=== PATIENT | male | born 1945 | race Caucasian/White ===

== ENCOUNTER 2020-06-15 16:36 | Inpatient (IN) | payer OTHER ==
[~2020-06-15] VITALS: Ht 175.3 cm; Wt 95.3 kg
[~2020-06-15 16:36] MED LIST: ACYCLOVIR400 MG PO; PREDNISONE20 MG PO
[2020-06-15 17:41] LABS: HEMOGLOBIN 16.1 gm/dl (14.0-17.5); RED BLOOD COUNT 5.26 M/UL (4.20-5.50); WHITE BLOOD COUNT 8.6 K/UL (4.5-11.0)
[2020-06-15] MEDS ORDERED: NORVASC5 MG PO (18:57)
[2020-06-15] MEDS ORDERED: ASPIRIN81 MG PO (18:57)
[2020-06-16 08:24] LABS: HEMOGLOBIN 15.5 gm/dl (14.0-17.5); RED BLOOD COUNT 5.1 M/UL (4.20-5.50); WHITE BLOOD COUNT 8.4 K/UL (4.5-11.0)
[2020-06-17 07:04] LABS: HEMOGLOBIN 14.7 gm/dl (14.0-17.5); RED BLOOD COUNT 4.81 M/UL (4.20-5.50); WHITE BLOOD COUNT 8.8 K/UL (4.5-11.0)
[2020-06-17] MEDS ORDERED: MEDROL4 MG PO (15:32)
[2020-06-18 05:22] LABS: HEMOGLOBIN 14.7 gm/dl (14.0-17.5); RED BLOOD COUNT 4.85 M/UL (4.20-5.50); WHITE BLOOD COUNT 7.1 K/UL (4.5-11.0)
[2020-06-18 05:46] LABS: BUN/CREATININE RATIO 23 (0-10)
[2020-06-19 06:03] LABS: BUN/CREATININE RATIO 25 (0-10)
[2020-06-20 05:44] LABS: BUN/CREATININE RATIO 26 (0-10)
--- NOTE | 2020-06-20 15:23 | NUR ---
PATIENT SATS 79% ON ROOM AIR ON EXERTION
[2020-06-21 14:52] LABS: BORDETELLA PARAPERTUSSIS Not Detected (Not Detectd); BORDETELLA PERTUSSIS Not Detected (Not Detectd); CHLAMYDIA PNEUMONIAE Not Detected (Not Detectd); CORONAVIRUS HKU1 Not Detected (Not Detectd); CORONAVIRUS NL63 Not Detected (Not Detectd); CORONAVIRUS OC43 Not Detected (Not Detectd); CORONOAVIRUS 229E Not Detected (Not Detectd); HUMAN METAPNEUMOVIRUS Not Detected (Not Detectd); HUMAN RHINOVIRUS/ENTEROVIRUS Not Detected (Not Detectd); INFLUENZA A Not Detected (Not Detectd); INFLUENZA B Not Detected (Not Detectd); MYCOPLASMA PNEUMONIAE Not Detected (Not Detectd); PARAINFLUENZA VIRUS 1 Not Detected (Not Detectd); PARAINFLUENZA VIRUS 2 Not Detected (Not Detectd); PARAINFLUENZA VIRUS 3 Not Detected (Not Detectd); PARAINFLUENZA VIRUS 4 Not Detected (Not Detectd); RESPIRATORY SYNCYTIAL VIRUS Not Detected (Not Detectd)
[2020-06-21 16:21] LABS: SARS-CoV-2 DETECTED (Not Detectd)
[2020-06-22 06:24] LABS: HEMOGLOBIN 15.8 gm/dl (14.0-17.5); RED BLOOD COUNT 5.28 M/UL (4.20-5.50); WHITE BLOOD COUNT 10.5 K/UL (4.5-11.0)
[2020-06-22 06:50] LABS: BUN/CREATININE RATIO 23 (0-10)
[2020-06-22] MEDS ORDERED: DECADRON6 MG PO (11:57)
[2020-06-22] MEDS ORDERED: HYDRALAZINE HCL25 MG PO ×2 (12:03→13:22)
[2020-06-22] MEDS ORDERED: NORVASC10 MG PO (12:03)
[2020-06-22] MEDS ORDERED: COMBIVENT RESPIM4 GM INH (12:03)
== END 2020-06-22 14:32 | disposition home or self-care (01) | DRG 177 ==
LOC: ER1 16:36 → CDU 18:33 → MED SURG 4 18:33
PROVIDERS: Internal Medicine; Preventive Medicine Occupational Medicine; ADMIT Internal Medicine
PROC: 8E0ZXY6 Isolation (ICD-10-PCS; principal; 2020-06-15)
PROC: XW033E5 Introduction of Remdesivir Anti-infective into Peripheral Vein, Percutaneous Approach, New Technology Group 5 (ICD-10-PCS; 2020-06-15)
PROC: XW13325 Transfusion of Convalescent Plasma (Nonautologous) into Peripheral Vein, Percutaneous Approach, New Technology Group 5 (ICD-10-PCS; 2020-06-17)
DX: U07.1 COVID-19 (principal); J12.82 Pneumonia due to coronavirus disease 2019; J96.01 Acute respiratory failure with hypoxia; N17.9 Acute kidney failure, unspecified; G47.33 Obstructive sleep apnea (adult) (pediatric); R73.9 Hyperglycemia, unspecified; I10 Essential (primary) hypertension; Z79.82 Long term (current) use of aspirin; Z79.899 Other long term (current) drug therapy
CPT/HCPCS: 36415; 71045; 80053; 80076; 83605; 85025; 85027; 85610; 85652; 86140; 86710; 86900; 86901; 86927; 87040; 87633; 90471; 94640; 94664; 94760; 96365; 96366; 96368; 96372; 96375; 97116; 97116-GP-CQ; 97162; 99285; J0360; J0456; J0696; J1100; J1650; J2405; J7030

== ENCOUNTER 2020-07-12 14:54 | Inpatient (IN) | payer OTHER ==
[~2020-07-12] VITALS: Ht 177.8 cm; Wt 90.4 kg
[~2020-07-12 14:54] MED LIST changes: +ASPIRIN81 MG PO; +COMBIVENT RESPIM4 GM INH; +DECADRON6 MG PO; +HYDRALAZINE HCL25 MG PO; +MEDROL4 MG PO; +NORVASC10 MG PO; +NORVASC5 MG PO
[2020-07-12 16:09] LABS: RED BLOOD COUNT 4.92 M/UL (4.20-5.50); WHITE BLOOD COUNT 11.7 K/UL (4.5-11.0)
[2020-07-12 16:37] LABS: BUN/CREATININE RATIO 16 (0-10)
[2020-07-12] MEDS ORDERED: ALBUTEROL2.5 MG/3 M INH (20:08)
[2020-07-13 02:29] LABS: HEMOGLOBIN 13.6 gm/dl (14.0-17.5); RED BLOOD COUNT 4.49 M/UL (4.20-5.50)
[2020-07-13 02:32] LABS: WHITE BLOOD COUNT 7.1 K/UL (4.5-11.0)
[2020-07-15 03:41] LABS: BUN/CREATININE RATIO 22 (0-10)
--- NOTE | 2020-07-16 14:44 | NUR ---
PT GOT UP TO BED TO BEDSIDE COMMODE. HIS OXYGEN DSTATED TO 79 WHILE MOVING. ONCE IN CHAIR HIS OXYGEN CAME BACK UP AFTER A COUPLE MINUTES. PT THEN SAT IN RECLINING CHAIR TO GET OUT OF THE BED. PT TOLERATED IT WELL OXYGEN JUST DROPS DOWN TO THE LOW 80s WHEN STANDING.
[2020-07-18 02:28] LABS: HEMOGLOBIN 13.6 gm/dl (14.0-17.5); RED BLOOD COUNT 4.51 M/UL (4.20-5.50); WHITE BLOOD COUNT 10.6 K/UL (4.5-11.0)
[2020-07-18 02:45] LABS: BUN/CREATININE RATIO 30 (0-10)
--- NOTE | 2020-07-19 14:01 | NUR ---
NO CHANGE FROM PREVIOUS ASSESSMENT, PT ALERT AND ORIENTED, WILL CONTINUE TO MONITOR
--- NOTE | 2020-07-20 14:34 | NUR ---
14:00 NO CHANGES FROM PREVIOUS ASSESSMENT, PT RESTING IN BED, NO S/S DISTRESS, VSS AT THIS TIME
[2020-07-24 02:54] LABS: HEMOGLOBIN 13.5 gm/dl (14.0-17.5); RED BLOOD COUNT 4.51 M/UL (4.20-5.50); WHITE BLOOD COUNT 12.6 K/UL (4.5-11.0)
[2020-07-24 03:11] LABS: BUN/CREATININE RATIO 37 (0-10)
[2020-07-25] MEDS ORDERED: ELIQUIS 5 MG TAB5 MG PO (11:17)
== END 2020-07-25 15:08 | disposition home health service (06) | DRG 175 ==
LOC: ER1 14:54 → PROG CARE 18:15 → CDU 18:15 → PROG CARE 22:48
PROVIDERS: Family Medicine; Internal Medicine Infectious Disease; ADMIT Internal Medicine
PROC: 8E0ZXY6 Isolation (ICD-10-PCS; principal; 2020-07-12)
PROC: B24BZZZ Ultrasonography of Heart with Aorta (ICD-10-PCS; 2020-07-12)
PROC: 5A0955A Assistance with Respiratory Ventilation, Greater than 96 Consecutive Hours, High Flow/Velocity Cannula (ICD-10-PCS; 2020-07-13)
DX: I26.99 Other pulmonary embolism without acute cor pulmonale (principal); J12.82 Pneumonia due to coronavirus disease 2019; J96.21 Acute and chronic respiratory failure with hypoxia; J84.10 Pulmonary fibrosis, unspecified; I10 Essential (primary) hypertension; Z79.899 Other long term (current) drug therapy; Z86.16 Personal history of COVID-19
CPT/HCPCS: ECHO; 36415; 36600; 71045; 80048; 80053; 81001; 82550; 82553; 82728; 82803; 83605; 84484; 85025; 85379; 85610; 86140; 87040; 87086; 93005; 93306; 94640; 94664; 94760; 94762; 96365; 96372; 96375; 99285; J1650; J2543; J2920; J2930; Q9967; U0002

== ENCOUNTER → 2020-08-22 | Outpatient (CLI) | payer OTHER ==
[~2020-08-22] MED LIST changes: +ALBUTEROL2.5 MG/3 M INH; +ELIQUIS 5 MG TAB5 MG PO
== END ==
LOC: RAD 12:48
DX: Z09 Encounter for follow-up examination after completed treatment for conditions other than malignant neoplasm (principal); Z86.16 Personal history of COVID-19; R91.8 Other nonspecific abnormal finding of lung field
CPT/HCPCS: 71046

== ENCOUNTER → 2020-10-26 | Outpatient (CLI) | payer OTHER | LOC: EXRD 08:39 | DX: I10 Essential (primary) hypertension (principal); Z86.711 Personal history of pulmonary embolism | CPT/HCPCS: 71046 ==